=== PATIENT | female | born 1970 | race Two or more races ===

== ENCOUNTER 2016-08-24 12:36 | Emergency (ER) | payer OTHER ==
[~2016-08-24] VITALS: Ht 157.5 cm; Wt 771.6 kg
[~2016-08-24 12:36] MED LIST: LORA-258
[2016-08-24 12:47] VITALS: BP 116/66
[2016-08-24] MEDS ORDERED: HYDR25CA PO (12:52)
[2016-08-24] MEDS ORDERED: DEXAMETHASONE SOD PHOSPHATE 10 MG/ML VIAL ONE (13:44)
[2016-08-24] MEDS ORDERED: DEXAMETHASONE SOD PHOSPHATE 4 MG/ML VIAL IM ONE (14:00)
== END 2016-08-24 14:19 | disposition home or self-care (01) ==
LOC: ER 12:38
DX: L50.9 Urticaria, unspecified (principal); L23.9 Allergic contact dermatitis, unspecified cause
CPT/HCPCS: 96372; 99283; A4606; J1100; Z7610